=== PATIENT | female | born 1965 | race Hispanic/Latino ===

== ENCOUNTER 2016-09-01 15:15 | Emergency (ER) | payer MEDICARE ==
[2016-09-01 17:07] VITALS: BP 135/93
== END 2016-09-01 15:16 ==
LOC: ED 15:15
DX: R07.9 Chest pain, unspecified (principal); R11.2 Nausea with vomiting, unspecified; Z88.8 Allergy status to other drugs, medicaments and biological substances; Z88.6 Allergy status to analgesic agent; Z53.21 Procedure and treatment not carried out due to patient leaving prior to being seen by health care provider

== ENCOUNTER 2018-03-29 11:05 | Emergency (ER) | payer MEDICARE ==
[2018-03-29 12:04] LABS: Basophils % (Auto) 0.6 % (0.0-1.8); Eosinophils # (Auto) 0.2 K/mm3 (0.0-0.4); Eosinophils % (Auto) 3.5 % (0.0-4.3); Hematocrit 43.7 % (30.3-42.9); Hemoglobin 14.6 gm/dl (10.1-14.3); Lymphocytes # (Auto) 2.5 K/mm3 (1.2-5.4); Mean Corpuscular HGB Conc 33 % (30-34); Mean Corpuscular Hemoglobin 32 pg (28-32); Mean Corpuscular Volume 95 fl (79-97); Monocytes # (Auto) 0.5 K/mm3 (0.0-0.8); Monocytes % (Auto) 9.8 % (0.0-7.3); Platelet Count 171 K/mm3 (140-440); Red Blood Count 4.63 M/mm3 (3.65-5.03); Red Cell Distribution Width 14.4 % (13.2-15.2)
--- NOTE | 2018-03-29 12:08 | XRay Report ---
ROUTINE CHEST, TWO VIEWS: HISTORY: Shortness of breath. The trachea, heart, mediastinal contour, lung josue and bony thorax are unremarkable. No significant change since 10/03/15. IMPRESSION: No acute cardiopulmonary process is identified.
[2018-03-29 12:16] LABS: BUN/Creatinine Ratio 15; Blood Urea Nitrogen 9 mg/dL (7-17); Calcium 9.1 mg/dL (8.4-10.2); Hemolysis Index 52
[2018-03-29] MEDS ORDERED: DUONEB *Not for PRN Use IH ONE ×2 (13:52→13:54)
[2018-03-29] MEDS ORDERED: SOLU-Medrol IV ONE (16:02)
[2018-03-29] MEDS ORDERED: MAGNESIUM SULFATE 1 GM in NACL 0.9% 50 ML IV ONE (16:02)
[2018-03-29] MEDS ORDERED: PROVENTIL IH ONE (16:02)
--- NOTE | 2018-03-29 16:17 | Emergency Department Report ---
ED Shortness of Breath HPI - General Chief Complaint: Dyspnea/Respdistress Stated Complaint: SOB Time Seen by Provider: 03/29/18 15:57 Source: patient Mode of arrival: Ambulatory Limitations: No Limitations - History of Present Illness Initial Comments: Patient is a 52-year-old female with past medical history of COPD who states she's had some increased shortness of breath with cough the last 2 days. Patient states that she's been using her inhaler and nebulizer machine however these are not helping with her symptoms. Patient states cough is dry and nonproductive. Patient states she does have shortness of breath worse with exertion. Patient denies any chest pain fevers chills nausea vomiting headache abdominal pain at this time. - Related Data Home Medications Medication Instructions Recorded Confirmed Last Taken Clopidogrel Bisulfate [Plavix] 75 mg PO QHS 07/30/14 11/22/15 09/26/15 Furosemide [Lasix] 40 mg PO BID 07/30/14 11/22/15 10/02/15 Ramipril 2.5 mg PO QDAY 07/30/14 11/22/15 10/02/15 ALBUTEROL Inhaler [ProAir HFA 90 mcg PO PRN PRN 08/06/14 11/22/15 06/24/15 Inhaler] 90mcg Gabapentin [Neurontin] 300 mg PO TID 06/25/15 11/22/15 10/02/15 Nitroglycerin [Nitrostat] 0.4 mg SL Q5M PRN 06/25/15 11/22/15 2 Weeks Ago ~09/19/15 ALBUTEROL Inhaler [ProAir HFA 2 puff IH QID PRN 09/18/15 11/22/15 1 Day Ago Inhaler] ~10/02/15 Loratadine [Claritin] 10 mg PO DAILY 09/18/15 11/22/15 1 Week Ago ~09/26/15 Pantoprazole [Protonix TAB] 40 mg PO QDAY 09/18/15 11/22/15 2 Days Ago ~10/01/15 lamoTRIgine [LaMICtal Xr] 150 mg PO QDAY 09/18/15 11/22/15 10/02/15 metOLazone [Metolazone] 2.5 mg PO DAILY 09/18/15 11/22/15 10/02/15 Previous Rx's Medication Instructions Recorded Last Taken Type Albuterol Sulfate [Albuterol 0.63% 0.63 mg IH TID PRN #1 box 11/26/15 Unknown Rx NEBS] Budesonide [Pulmicort] 0.25 mg IH Q12HR PRN #1 box 11/26/15 Unknown Rx Ipratropium [Atrovent NEB] 0.5 mg IH Q8HRT PRN #1 box 11/26/15 Unknown Rx Prednisone [predniSONE 10 mg 10 mg PO .TAPER #1 tab.ds.pk 11/26/15 Unknown Rx (6-Day Pack, 21 Tabs)] Sennosides/Docusate Sodium 1 each PO BID #60 tablet 11/26/15 Unknown Rx [Senna-Docusate Sodium Tablet] ALBUTEROL NEB's [Proventil 0.083% 5 mg IH TID PRN #20 nebu 03/29/18 Unknown Rx NEBS] Azithromycin [Zithromax TAB] 250 mg PO QDAY #6 tablet 03/29/18 Unknown Rx Allergies Allergy/AdvReac Type Severity Reaction Status Date / Time aspirin Allergy difficulty Verified 07/30/14 10:08 breathing ibuprofen AdvReac Shortness Verified 09/18/15 12:33 of Breath NSAIDS (Non-Steroidal AdvReac Shortness Verified 10/02/15 09:51 Anti-Inflamma of Breath ED Review of Systems ROS: Stated complaint: SOB Other details as noted in HPI Comment: All other systems reviewed and negative ED Past Medical Hx - Past Medical History Hx Hypertension: Yes Hx Heart Attack/AMI: No Hx Congestive Heart Failure: No Hx Diabetes: Yes Hx GERD: Yes Hx Liver Disease: Yes (fatty liver) Hx Renal Disease: No (Renal stones in past) Hx Headaches / Migraines: Yes (Migranes) Hx Seizures: No Hx Kidney Stones: Yes Hx Asthma: Yes Hx COPD: Yes Additional medical history: "artery disease". 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 Patient has good distal flow. She is being worked up and has been referred to a vascular surgeon. - Surgical History Hx Open Heart Surgery: Yes Hx Cholecystectomy: Yes Additional Surgical History: aortic bypass sep 2015 - Social History Smoking Status: Current Some Day Smoker Substance Use Type: None - Medications Home Medications: Home Medications Medication Instructions Recorded Confirmed Last Taken Type Clopidogrel Bisulfate [Plavix] 75 mg PO QHS 07/30/14 11/22/15 09/26/15 History Furosemide [Lasix] 40 mg PO BID 07/30/14 11/22/15 10/02/15 History Ramipril 2.5 mg PO QDAY 07/30/14 11/22/15 10/02/15 History ALBUTEROL Inhaler [ProAir HFA 90 mcg PO PRN PRN 08/06/14 11/22/15 06/24/15 History Inhaler] 90mcg Gabapentin [Neurontin] 300 mg PO TID 06/25/15 11/22/15 10/02/15 History Nitroglycerin [Nitrostat] 0.4 mg SL Q5M PRN 06/25/15 11/22/15 2 Weeks Ago History ~09/19/15 ALBUTEROL Inhaler [ProAir HFA 2 puff IH QID PRN 09/18/15 11/22/15 1 Day Ago History Inhaler] ~10/02/15 Loratadine [Claritin] 10 mg PO DAILY 09/18/15 11/22/15 1 Week Ago History ~09/26/15 Pantoprazole [Protonix TAB] 40 mg PO QDAY 09/18/15 11/22/15 2 Days Ago History ~10/01/15 lamoTRIgine [LaMICtal Xr] 150 mg PO QDAY 09/18/15 11/22/15 10/02/15 History metOLazone [Metolazone] 2.5 mg PO DAILY 09/18/15 11/22/15 10/02/15 History Albuterol Sulfate [Albuterol 0.63% 0.63 mg IH TID PRN #1 box 11/26/15 Unknown Rx NEBS] Budesonide [Pulmicort] 0.25 mg IH Q12HR PRN #1 box 11/26/15 Unknown Rx Ipratropium [Atrovent NEB] 0.5 mg IH Q8HRT PRN #1 box 11/26/15 Unknown Rx Prednisone [predniSONE 10 mg 10 mg PO .TAPER #1 tab.ds.pk 11/26/15 Unknown Rx (6-Day Pack, 21 Tabs)] Sennosides/Docusate Sodium 1 each PO BID #60 tablet 04/18/16 Unknown Rx [Senna-Docusate Sodium Tablet] ALBUTEROL NEB's [Proventil 0.083% 5 mg IH TID PRN #20 nebu 03/29/18 Unknown Rx NEBS] Azithromycin [Zithromax TAB] 250 mg PO QDAY #6 tablet 03/29/18 Unknown Rx ED Physical Exam - General Limitations: No Limitations General appearance: alert, in no apparent distress - Head Head exam: Present: atraumatic, normocephalic - Eye Eye exam: Present: normal appearance - ENT ENT exam: Present: mucous membranes moist - Neck Neck exam: Present: normal inspection - Respiratory Respiratory exam: Present: normal lung sounds bilaterally, wheezes, prolonged expiratory. Absent: respiratory distress, rales, rhonchi, chest wall tenderness - Cardiovascular Cardiovascular Exam: Present: regular rate, normal rhythm, normal heart sounds. Absent: systolic murmur, diastolic murmur, rubs, gallop - GI/Abdominal GI/Abdominal exam: Present: soft, normal bowel sounds. Absent: distended, tenderness, guarding, rebound - Extremities Exam Extremities exam: Present: normal inspection - Back Exam Back exam: Present: normal inspection - Neurological Exam Neurological exam: Present: alert, oriented X3 - Psychiatric Psychiatric exam: Present: normal affect, normal mood - Skin Skin exam: Present: warm, dry, intact, normal color. Absent: rash ED Course Vital Signs 03/29/18 03/29/18 03/29/18 11:13 13:03 14:06 Temperature 98.3 F Pulse Rate 75 79 Pulse Rate [ 71 Posterior Bilateral Bases ] Respiratory 16 22 Rate Respiratory 24 Rate [Posterior Bilateral Bases] Blood Pressure 115/75 116/65 Blood Pressure [Left] O2 Sat by Pulse 98 98 Oximetry 03/29/18 03/29/18 03/29/18 15:45 15:46 16:32 Temperature 97.8 F Pulse Rate 62 Pulse Rate [ 74 Posterior Bilateral Bases ] Respiratory 22 21 Rate Respiratory 18 Rate [Posterior Bilateral Bases] Blood Pressure Blood Pressure 94/57 [Left] O2 Sat by Pulse 97 96 Oximetry 03/29/18 17:21 Temperature Pulse Rate Pulse Rate [ 85 Posterior Bilateral Bases ] Respiratory Rate Respiratory 20 Rate [Posterior Bilateral Bases] Blood Pressure Blood Pressure [Left] O2 Sat by Pulse Oximetry ED Medical Decision Making - Lab Data Result diagrams: 03/29/18 11:51 03/29/18 11:51 - EKG Data -: EKG Interpreted by Me - EKG Data 03/29/18 17:27 EKG shows sinus rhythm, rate of 64 normal axis normal intervals. Anterior septal Q waves, interpretation is 1125 as acute OK evident from this EKG - Radiology Data Chest x-ray shows no acute process - Medical Decision Making Patient is a 52-year-old female who is presenting with wheezing cough. Patient most likely has acute bronchitis. Patient was given several neb treatments here in the emergency department which helped her shortness of breath. Patient's on discharge to still have a slight wheeze however she has a wheezing at baseline patient states he feels much improved and is ready to go home. Critical care attestation.: If time is entered above; I have spent that time in minutes in the direct care of this critically ill patient, excluding procedure time. ED Disposition Clinical Impression: COPD exacerbation Acute bronchitis Qualifiers: Bronchitis organism: unspecified organism Qualified Code(s): J20.9 - Acute bronchitis, unspecified Disposition: DC- TO HOME OR SELFCARE Is pt being admited?: No Does the pt Need Aspirin: No Condition: Stable Instructions: Acute Bronchitis (ED), Chronic Bronchitis (ED) Prescriptions: ALBUTEROL NEB's [Proventil 0.083% NEBS] 5 mg IH TID PRN #20 nebu PRN Reason: Wheezing Azithromycin [Zithromax TAB] 250 mg PO QDAY #6 tablet Referrals: PRIMARY CARE, [Primary Care Provider] - 3-5 Days Time of Disposition: 17:30
[2018-03-29 18:15] VITALS: BP 111/54
== END 2018-03-29 18:12 | disposition home or self-care (01) ==
LOC: ED 11:05
DX: J44.1 Chronic obstructive pulmonary disease with (acute) exacerbation (principal); J20.9 Acute bronchitis, unspecified; I10 Essential (primary) hypertension; E11.9 Type 2 diabetes mellitus without complications; K21.9 Gastro-esophageal reflux disease without esophagitis; F17.200 Nicotine dependence, unspecified, uncomplicated; Z87.442 Personal history of urinary calculi; Z88.6 Allergy status to analgesic agent; Z88.5 Allergy status to narcotic agent
CPT/HCPCS: 36415; 71046; 80048; 85025; 93005; 93010; 94640; 96365; 96375; 99284; J2930; J3475

== ENCOUNTER 2019-02-18 07:34 | Day surgery (SDC) | payer MEDICARE ==
[~2019-02-18 07:34] MED LIST: NACL 0.9% 1000 ML 1,000 ML IV SCH
[2019-02-18] MEDS ORDERED: WATER FOR IRRIG STERILE IR ONE (07:38)
[2019-02-18] MEDS ORDERED: WATER FOR IRRIG STERILE ONE (07:39)
--- NOTE | 2019-02-18 07:49 | Anesthesia Consultation ---
<RUBA HOWELL - Last Filed: 02/18/19 07:49> Anesthesia Consult and Med Hx Date of service: 02/18/19 - Pulmonary Hx Smoking: Yes Hx Asthma: Yes Hx Respiratory Symptoms: No (Not currently) SOB: Yes (SLEEPS ON 4 PILLOWS SOB LAYING FLAT) COPD: Yes Hx Pneumonia: Yes Hx Sleep Apnea: Yes - Cardiovascular System Hx Hypertension: Yes Hx Coronary Artery Disease: Yes (Mild) Hx Heart Attack/AMI: No Hx Angina: Yes (Uses NTG PRN) Hx Percutaneous Transluminal Coronary Angioplasty (PTCA): No Hx Peripheral Vascular Disease: Yes - Central Nervous System Hx Seizures: No CVA: Yes Hx Psychiatric Problems: Yes - Gastrointestinal Hx Gastroesophageal Reflux Disease: Yes - Endocrine Hx Renal Disease: No (Renal stones in past) Hx Liver Disease: Yes (fatty liver) 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") Hx Thyroid Disease: No - Hematic Hx Anemia: Yes (In past) - Other Systems Hx Alcohol Use: No Hx Substance Use: No Hx Cancer: No Hx Obesity: No <PAUL COOK - Last Filed: 02/18/19 08:40> Anesthesia Consult and Med Hx - Airway Anesthetic Teeth Evaluation: Poor (missing, broken, loose teeth on the bottom), Dentures (top) ROM Head & Neck: Adequate Mental/Hyoid Distance: Adequate Mallampati Class: Class II Intubation Access Assessment: Probably Good - Pre-Operative Health Status ASA Pre-Surgery Classification: ASA3 Proposed Anesthetic Plan: MAC - Pulmonary Hx Smoking: Yes Hx Asthma: Yes SOB: Yes COPD: Yes - Cardiovascular System Hx Hypertension: Yes Hx Coronary Artery Disease: Yes Hx Peripheral Vascular Disease: Yes - Central Nervous System Hx Psychiatric Problems: Yes (anxiety disorder)
--- NOTE | 2019-02-18 08:40 | Anesthesia Day of Surgery ---
Anesthesia Day of Surgery - Day of Surgery Patient Examined: Yes Patient H&P Reviewed: Yes Patient is NPO: Yes
--- NOTE | 2019-02-18 09:27 | Short Stay Summary ---
Short Stay Documentation Date of service: 02/18/19 Narrative H&P: Ms Monsivais presents for screening colonoscopy. + family h/o colon polyps. Denies abd pain, gi bleeding, or change in bowel habits. - History H&P: obtained from office Past Medical History: COPD, PVD, other (see clinic note) Past Surgical History: Other (no changes from clinic note) Social history: other (no changes from clinic note) - Allergies and Medications Current Medications: Allergies aspirin Allergy (Verified 07/30/14 10:08) difficulty breathing ibuprofen Adverse Reaction (Verified 09/18/15 12:33) Shortness of Breath NSAIDS (Non-Steroidal Anti-Inflamma Adverse Reaction (Verified 10/02/15 09:51) Shortness of Breath Home Medications Medication Instructions Recorded Confirmed Last Taken Type Clopidogrel Bisulfate [Plavix] 75 mg PO QHS 07/30/14 02/18/19 02/10/19 History Furosemide [Lasix] 40 mg PO BID 07/30/14 02/18/19 02/17/19 History Ramipril 2.5 mg PO QDAY 07/30/14 02/18/19 02/17/19 History ALBUTEROL Inhaler (OR & NICU) 90 mcg PO PRN PRN 08/06/14 02/18/19 02/17/19 History [ProAir HFA Inhaler] Gabapentin [Neurontin] 300 mg PO TID 06/25/15 02/18/19 02/17/19 History Nitroglycerin [Nitrostat] 0.4 mg SL Q5M PRN 06/25/15 02/18/19 2 Weeks Ago History ~09/19/15 ALBUTEROL Inhaler (OR & NICU) 2 puff IH QID PRN 09/18/15 02/18/19 02/17/19 History [ProAir HFA Inhaler] Loratadine [Claritin] 10 mg PO DAILY 09/18/15 02/18/19 1 Week Ago History ~09/26/15 Pantoprazole [Protonix TAB] 40 mg PO QDAY 09/18/15 02/18/19 02/17/19 History lamoTRIgine [LaMICtal Xr] 150 mg PO QDAY 09/18/15 02/18/19 02/17/19 History metOLazone [Metolazone] 2.5 mg PO DAILY 09/18/15 02/18/19 02/17/19 History Albuterol Sulfate [Albuterol 0.63% 0.63 mg IH TID PRN #1 box 11/26/15 02/18/19 02/17/19 Rx NEBS] Budesonide [Pulmicort] 0.25 mg IH Q12HR PRN #1 box 11/26/15 02/18/19 02/17/19 Rx Ipratropium [Atrovent NEB] 0.5 mg IH Q8HRT PRN #1 box 11/26/15 02/18/19 Unknown Rx Prednisone [predniSONE 10 mg 10 mg PO .TAPER #1 tab.ds.pk 11/26/15 02/18/19 02/17/19 Rx (6-Day Pack, 21 Tabs)] Sennosides/Docusate Sodium 1 each PO BID #60 tablet 11/26/15 02/18/19 Unknown Rx [Senna-Docusate Sodium Tablet] ALBUTEROL NEB's [Proventil 0.083% 5 mg IH TID PRN #20 nebu 03/29/18 02/18/19 02/18/19 Rx NEBS] Azithromycin [Zithromax TAB] 250 mg PO QDAY #6 tablet 03/29/18 02/18/19 Unknown Rx Active Medications Sodium Chloride (Nacl 0.9% 1000 Ml) 1,000 mls @ 50 mls/hr IV DIRECT PAPITO Last Admin: 02/18/19 08:21 Dose: 50 mls/hr Documented by: - Physical exam General appearance: no acute distress Lungs: Clear to auscultation Heart: Regular rate, Normal S1, Normal S2 Gastrointestinal: normal - Brief post op/procedure progress note Date of procedure: 02/18/19 Pre-op diagnosis: screening colonoscopy Post-op diagnosis: other (colon polyps, internal hemorrhoids) Procedure: colonoscopy with snare polypectomy and biopsy Anesthesia: MAC Findings: 1. Colon polyps x 3. two removed with cold biopsy forceps, 1 removed with cold snare polypectomy 2. Internal hemorrhoids Surgeon: BENIGNO TAYLOR Estimated blood loss: minimal Pathology: list (Jar A - ascending colon polyp, Jar B - transverse polyp, Jar C - sigmoid polyp) Specimen disposition: to lab Condition: stable - Disposition Condition at discharge: Good Disposition: DC-01 TO HOME OR SELFCARE Short Stay Discharge Plan Follow up with: YENY SANTANA MD [Primary Care Provider] - 7 Days
--- NOTE | 2019-02-18 09:32 | Operative Report ---
Operative Report Operative Report: Colonoscopy Procedure Note with Snare polypectomy and biopsy Date of procedure: 02/18/2019 Endoscopist: Asael Todd Pre-op diagnosis: Screening for colorectal cancer Post-op diagnosis: Colon polyps x 3, internal hemorrhoids Anesthesia: MAC Complications: No immediate complications Estimated blood loss: minimal Procedure: After consent was obtained, the patient was placed in the left lateral decubitus position. The olympus colonoscope was inserted into the patient's rectum under direct vision, and advanced to the cecum without difficulty. The patient tolerated the procedure well. The views of the mucosa were good. The quality of prep was good. The patient's vital signs were monitored continuously throughout the procedure. Findings: There was an ~2 mm sessile polyp in the ascending colon. The polyp was removed with cold biopsy forceps and retrieved. There was an ~2-3 mm sessile polyp in the transverse colon. The polyp was removed with cold biopsy forceps and retrieved. There was an ~4 mm sessile polyp in the sigmoid colon. The polyp was removed with cold snare polypectomy and retrieved. Internal hemorrhoids were visualized on retro-flexion view. Impression: 1. Colon polyp x 2 removed with cold biopsy forceps 2. Colon polyp x 1 in sigmoid removed with cold snare polypectomy 3. Internal hemorrhoids Recommendations: -follow up pathology -repeat colonoscopy in 3-5 years for surveillaince based on pathology results
[2019-02-18 09:59] VITALS: BP 116/63
[2019-02-18] MEDS ORDERED: DIPRIVAN 10 MG/ML IV ONE (15:00)
== END 2019-02-18 07:35 | disposition home or self-care (01) ==
LOC: GIO 07:34
PROVIDERS: ATTEND Internal Medicine Gastroenterology
DX: Z12.11 Encounter for screening for malignant neoplasm of colon (principal); K63.5 Polyp of colon; K64.8 Other hemorrhoids; K63.89 Other specified diseases of intestine; J44.9 Chronic obstructive pulmonary disease, unspecified; I25.10 Atherosclerotic heart disease of native coronary artery without angina pectoris; E11.51 Type 2 diabetes mellitus with diabetic peripheral angiopathy without gangrene; F17.210 Nicotine dependence, cigarettes, uncomplicated; I10 Essential (primary) hypertension; F41.0 Panic disorder [episodic paroxysmal anxiety]; F41.9 Anxiety disorder, unspecified; K21.9 Gastro-esophageal reflux disease without esophagitis; G47.30 Sleep apnea, unspecified; G43.909 Migraine, unspecified, not intractable, without status migrainosus; E78.00 Pure hypercholesterolemia, unspecified; F31.9 Bipolar disorder, unspecified; Z80.8 Family history of malignant neoplasm of other organs or systems; Z83.71 Family history of colonic polyps; Z88.6 Allergy status to analgesic agent; Z79.899 Other long term (current) drug therapy; Z98.890 Other specified postprocedural states; Z90.49 Acquired absence of other specified parts of digestive tract; Z98.51 Tubal ligation status; Z87.442 Personal history of urinary calculi; Z86.2 Personal history of diseases of the blood and blood-forming organs and certain disorders involving the immune mechanism; Z88.8 Allergy status to other drugs, medicaments and biological substances; Z86.73 Personal history of transient ischemic attack (TIA), and cerebral infarction without residual deficits
CPT/HCPCS: 45380; 45385; 82962; 88305; J7030; J2704

== ENCOUNTER 2021-05-30 09:55 | Outpatient (CLI) | payer MEDICARE ==
[2021-05-30 10:31] LABS: Basophils % (Auto) 0.5 % (0.0-1.8); Eosinophils # (Auto) 0.1 K/mm3 (0.0-0.4); Eosinophils % (Auto) 1.3 % (0.0-4.3); Hematocrit 44.1 % (30.3-42.9); Hemoglobin 14.8 gm/dl (10.1-14.3); Lymphocytes # (Auto) 1.4 K/mm3 (1.2-5.4); Lymphocytes % (Auto) 26.1 % (13.4-35.0); Mean Corpuscular HGB Conc 34 % (30-34); Mean Corpuscular Volume 95 fl (79-97); Monocytes # (Auto) 0.3 K/mm3 (0.0-0.8); Monocytes % (Auto) 5.8 % (0.0-7.3); Platelet Count 242 K/mm3 (140-440); Red Blood Count 4.65 M/mm3 (3.65-5.03); Red Cell Distribution Width 13.9 % (13.2-15.2)
[2021-05-30 10:37] LABS: Alanine Aminotransferase 11 units/L (7-56); Albumin 4.1 g/dL (3.9-5); Blood Urea Nitrogen 14 mg/dL (7-17); Calcium 9.2 mg/dL (8.4-10.2); Hemolysis Index 13
--- NOTE | 2021-05-30 10:51 | XRay Report ---
CHEST 2 VIEWS INDICATION / CLINICAL INFORMATION: COPD/J44.9. COMPARISON: 12/07/2018 FINDINGS: SUPPORT DEVICES: None. HEART / MEDIASTINUM: No significant abnormality. LUNGS / PLEURA: There is mild parenchymal opacity in the lingula which could represent atelectasis, s car, or pneumonia. The remainder the lungs appear clear. No pneumothorax. ADDITIONAL FINDINGS: No significant additional findings. IMPRESSION: 1. There is mild parenchymal opacity in the lingula which could represent atelectasis, scar, or pneum onia. Signer Name: Abner Bocanegra MD Signed: 05/30/2021 10:47 AM Workstation Name: [id number]
[2021-05-30 10:54] LABS: BUN/Creatinine Ratio 23
== END 2021-05-30 09:56 | disposition home or self-care (01) ==
LOC: XRAY 09:55
PROVIDERS: ATTEND Internal Medicine
DX: J44.9 Chronic obstructive pulmonary disease, unspecified (principal)
CPT/HCPCS: 36415; 71046; 80053; 85025